=== PATIENT | male | born 1940 | race Caucasian/White ===

== ENCOUNTER 2020-01-11 11:01 | Inpatient (IN) | payer OTHER ==
[~2020-01-11] VITALS: Ht 180.3 cm; Wt 74.1 kg
[2020-01-11] MEDS ORDERED: REMERON15 MG PO (11:08)
[2020-01-11] MEDS ORDERED: FUROSEMIDE40 MG PO (11:08)
[2020-01-11 12:14] LABS: BASOPHILS ABSOLUTE AUTO 0.02 K/mm3 (0.00-0.23); BASOPHILS PERCENT AUTO 0 % (0-2); EOSINOPHILS PERCENT AUTO 0 % (0-6); Hematocrit 43.7 % (37.0-53.0); Hemoglobin 14.5 g/dL (13.5-17.5); IMMATURE GRAN PERCENT AUTO 2 % (0-1); LYMPHOCYTES ABSOLUTE AUTO 1.13 K/mm3 (0.84-5.20); LYMPHOCYTES PERCENT AUTO 9 % (21-46); MONOCYTES ABSOLUTE AUTO 1.12 K/mm3 (0.16-1.47); MONOCYTES PERCENT AUTO 9 % (4-13); Mean Corpuscular HGB 31.3 pg (26.0-34.0); Mean Corpuscular HGB Conc 33.2 g/dL (31.5-36.5); Mean Corpuscular Volume 94 fL (80-100); Mean Platelet Volume 12.2 fL (9.1-12.4); NEUTROPHILS ABSOLUTE AUTO 9.88 K/mm3 (1.96-9.15); NEUTROPHILS PERCENT AUTO 80 % (41-73); Platelet Count 273 K/mm3 (150-400); RDW Coefficient Variation 19.2 % (11.7-14.2); RDW Standard Deviation 60.6 fL (35.1-46.3); Red Blood Cell Count 4.64 M/mm3 (4.30-5.90); White Blood Cell Count 12.35 K/mm3 (4.00-11.30)
[2020-01-11 12:37] LABS: Albumin, Blood 2.2 g/dL (3.4-5.0); Albumin/Globulin Ratio 0.6 (0.8-1.8); Bilirubin, Total 3.6 mg/dL (0.1-1.0); Calcium, Blood 9.1 mg/dL (8.5-10.1); Creatinine, Blood 2.23 mg/dL (0.60-1.20); Globulin, Blood 3.7 g/dL (2.2-4.0); Potassium, Blood 5.9 mmol/L (3.5-5.5); Total Protein, Blood 5.9 g/dL (6.4-8.2)
[2020-01-11 15:18] LABS: International Normalized Ratio 1.92; Prothrombin Time Results 19.8 Sec (9.7-11.5)
[2020-01-11 17:50] LABS: Source, Urine Clean Catch
[2020-01-11 17:55] LABS: Bilirubin, Urine Neg (Neg); Blood, Urine 1+ (Neg); Glucose Qualitative, Urine Neg (Neg); Ketones, Urine Neg (Neg); Leukocyte Esterase, Urine Neg (Neg); Nitrite, Urine Neg (Neg); Protein, Urine 2+ (Neg); Specific Gravity, Urine 1.015 (1.003-1.022); Urobilinogen, Urine 2+ (Normal)
[2020-01-11 18:03] LABS: Appearance, Urine Clear (Clear); Color, Urine Amber (P-Yellow); Hyaline Casts TNTC /lpf (0-2)
[2020-01-11 18:04] LABS: Bacteria Few /hpf; Red Blood Cells, Urine 0-2 /hpf (0-2); Squamous Epithelial Cells Few /hpf (Few); White Blood Cells, Urine Not Seen /hpf (0-5)
[2020-01-11 18:06] LABS: U Amphetamine Screen Not Detected; U Barbituate Screen Not Detected; U Benzodiazapine Screen Not Detected; U Buprenorphine Screen Not Detected; U Cannabinoids Screen Not Detected; U Cocaine Screen Not Detected; U Methadone Screen Not Detected; U Methamphetamine Screen Not Detected; U Opiates Screen Not Detected; U Oxycodone Screen Not Detected; U Phencyclidine Screen Not Detected; U Propoxyphene Screen Not Detected
[2020-01-11 18:12] LABS: Hematocrit 41.2 % (37.0-53.0); Hemoglobin 13.5 g/dL (13.5-17.5)
[2020-01-11 18:37] LABS: Bun/Creatinine Ratio 40.7 (12.0-20.0); Calcium, Blood 8.8 mg/dL (8.5-10.1); Creatinine, Blood 2.46 mg/dL (0.60-1.20); Potassium, Blood 5.4 mmol/L (3.5-5.5)
--- NOTE | 2020-01-11 19:20 | NUR ---
RECEIVED REPORT FROM RASHID DELEON RN IN RD. PT TO ROOM AT AT 1900. PT TRANSFERED TO BED WITH 5 PERSON ASSIST WITH SLIDER SHEET. BEDSIDE REPORT GIVEN TO ONCOMING RN.
[2020-01-12 04:19] LABS: BASOPHILS ABSOLUTE AUTO 0.04 K/mm3 (0.00-0.23); BASOPHILS PERCENT AUTO 0 % (0-2); EOSINOPHILS PERCENT AUTO 0 % (0-6); Hematocrit 41.2 % (37.0-53.0); Hemoglobin 13.5 g/dL (13.5-17.5); IMMATURE GRAN ABSOLUTE AUTO 0.28 K/mm3 (0.00-0.10); IMMATURE GRAN PERCENT AUTO 2 % (0-1); LYMPHOCYTES ABSOLUTE AUTO 1.28 K/mm3 (0.84-5.20); LYMPHOCYTES PERCENT AUTO 10 % (21-46); MONOCYTES ABSOLUTE AUTO 0.98 K/mm3 (0.16-1.47); MONOCYTES PERCENT AUTO 7 % (4-13); Mean Corpuscular HGB 31.3 pg (26.0-34.0); Mean Corpuscular HGB Conc 32.8 g/dL (31.5-36.5); Mean Corpuscular Volume 96 fL (80-100); Mean Platelet Volume 12.5 fL (9.1-12.4); NEUTROPHILS ABSOLUTE AUTO 10.59 K/mm3 (1.96-9.15); NEUTROPHILS PERCENT AUTO 81 % (41-73); NRBC ABSOLUTE 0.04 K/mm3 (0.00-0.02); NRBC Auto 0.3 /100 WBC (0.0-0.2); Platelet Count 268 K/mm3 (150-400); RDW Coefficient Variation 19.8 % (11.7-14.2); RDW Standard Deviation 62.6 fL (35.1-46.3); Red Blood Cell Count 4.31 M/mm3 (4.30-5.90); White Blood Cell Count 13.17 K/mm3 (4.00-11.30)
[2020-01-12 04:43] LABS: Albumin, Blood 2.5 g/dL (3.4-5.0); Albumin/Globulin Ratio 0.7 (0.8-1.8); Bilirubin, Total 5.5 mg/dL (0.1-1.0); Bun/Creatinine Ratio 42.2 (12.0-20.0); Calcium, Blood 8.9 mg/dL (8.5-10.1); Creatinine, Blood 2.7 mg/dL (0.60-1.20); Globulin, Blood 3.6 g/dL (2.2-4.0); Potassium, Blood 5.7 mmol/L (3.5-5.5); Total Protein, Blood 6.1 g/dL (6.4-8.2)
--- NOTE | 2020-01-12 04:55 | NUR ---
SHIFT SUMMARY: PATIENT EXIBITING SOME CONFUSION, FOR EXAMPLE; WHEN PATIENT WAS ASKED IF HIS EPIGASTRIC DISCOMFORT WAS CHRONIC HE STATED YES THAT IT WAS SOMETHING HE HAS FREQUENTLY AT HOME BUT A FEW MINUTES LATER HE STATED NO HE HAD NEVER FELT THIS PAIN BEFORE AND THEN AGAIN CHANGED HIS ANSWER TO YES IT WAS CHRONIC ALL WITHIN A 10 MINUTE PERIOD OF TIME. PATIENT REFUSED THE STOCKINGS STATING HIS FEET WERE TO SWOLLEN AND PAINFUL FOR THEM. PATIENT JAUNDICED AND BURPING CONTINUOUSLY. ALL OTHER VSS, CALL LIGHT WITHIN REACH, BED LOW AND LOCKED WITH EXIT ALARM ON.
[2020-01-12 08:09] LABS: HEP A AB, IGM Negative (Negative); HEP B CORE AB, IGM Negative (Negative); HIV SCREEN 4TH GENERATION WRFX Non Reactive (Non Reactive)
[2020-01-12 09:09] LABS: HBSAG SCREEN Negative (Negative); HEP B CORE AB, TOT Negative (Negative); HEP C VIRUS AB <0.1 (0.0-0.9)
--- NOTE | 2020-01-12 10:35 | NUR ---
PT ASSUMED CARE PT ALERT AND ORIENTED AT BASELINE, HAD WITNESS FALL DURING SHIFT CHANGE, GENERALIZED WEAKNESS, CURRENTLY ON BEDREST. VITALS STABLE AFEBRILE, NS RUNNING AT 100MLS, CURRENTLY ON CLEAR LIQUID DIET, BED ALARM ON ATTEMPTS TO GET OUT OF BED.
--- NOTE | 2020-01-12 10:44 | NUR ---
PT SET OFF BED ALARM; THIS RN TO ROOM; PT SITTING ON SIDE OF BED LEARNING OVER PULLING SIDE TABLE CLOSER. BO BUTLERA TO ROOM, ASSISTED PT TO LAY BACK IN BED, DURING TRANSTION TO LAY BACK PT STARTED BLINKING AND EYE ROLLED BACK, PT RESPONDING WITH MUMMBLES. JAW APPEARS TO BE TWITCHING. AFTER ONLY A FEW SECONDS PT EYES OPENED AND ABLWE TO ANSWER QUESTIONS. VS TAKEN. PRIMARY RN TO ROOM AND NOTIFIED.
--- NOTE | 2020-01-12 11:00 | NUR ---
PT ATTEMPTED TO GET OUT OF BED CAUGHT SITTING ON THE SIDE OF THE BED, PT HAS EPISODE OF ALMOST PASSING OUT, SLOWLY FALLING BACK ON THE BED. PT ALSO C/O STOMACH PAIN THAT WAS NOT RELIEVED BY TRAMADOL, OFFERED HEATING PACK WAS NOT THAT EFFECTIVE WELL DR. BARRY IS AWARE WENT TO SEE THE PATIENT RIGHT AWAY. ORDER RECEIVED TO GIVE PT A BOLUS OF 500CC OF NS, DILAUDID AND ALBUMIN 25%. PT WAS STILL ABLE TO TALK TO THE PROVIDER AGREED TO SWITCH HIS CODE STATUS TO DNR, ALSO CALLED PALLIATIVE CARE NURSE TO FOLLOW-UP. AFTER DR BARRY WAS DONE TALKING TO THE PATIENT, BOLUS OF NS WAS STARTED VIA PUMP. PT WAS RE-CHECKED AFTER 15MINS ASKED HOW IS HE DOING WITH THE PAIN AND SINCE PT HAS NOW ORDER FOR DILAUDID, PT STARTED SLURRING ON HIS SPEECH, LETHARGIC UNABLE TO MAKE EYE CONTACT. VITALS TAKEN SYSTOLIC BP ON THE 80'S PT RR WAS INCREASED TO 30'S-40'S. DR BARRY WAS CALLED AGAIN ABOUT PT'S SUDDEN CHANGE IN CONDITION, PT WAS APPROACHING END OF LIFE. TOLD DR. BARRY THAT PALLIATIVE CARE NURSE WAS CALLED URGENT TO TRANSITION PT TO COMFORT CARE, DR BARRY AGREED. PALLIATIVE CARE NURSE IN THE ROOM AND SPIRITUAL CARE PERSON. IV FLUIDS AND MEDS WAS STOPPED ONLY COMFORT CARE MEDS, 200CC OF BOLUS ADMINISTERED IN TOTAL, DILAUDID 0.5MG WAS GIVEN FOR COMFORT. PT STARTED HAVING MARY-IBANEZ RESPIRATION AND BECAME UNRESPONSIVE, HEART RATE STARTED TO SLOW DOWN ON MONITOR. PT AT 1207, DR BARRY MADE AWARE. COUSIN TEO CALLED TO GET AN UPDATE BEFORE PT TOLD HER THAT PT IS APPROACHING END OF LIFE AND ITS HAPPENING QUICK AND THAT WE NEED TO GET A HOLD OF SON, TOLD THIS RN THAT SON LIVES IN [place] AND SHE WILL TRY TO CONTACT HIM. SON CALLED RIGHT AFTER PT , HE WAS INFORMED THAT HIS DAD PASSED AND THAT HE WILL CALL BACK. DR BARRY MENTIONED THAT HE WILL TALK TO THE SON TOO.
--- NOTE | 2020-01-12 11:50 | NUR ---
Called to bedside pt declining chaplian called son called no answer pt transitioned to comfort. Respirations labored. prn meds give chaplian and staff with patient theraputic touch and comfort.
--- NOTE | 2020-01-12 12:22 | NUR ---
Spiritual care visit conducted. 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 I provide prayer, scripture reading and hold patient's hand until he expires at 1207.
[2020-01-12 13:50] LABS: Stool Occult Blood Guaiac 1 Pos (Neg)
--- NOTE | 2020-01-12 15:12 | NUR ---
spoke with patient terrance trejo and reviewed the events of his fathers passing. Yoly]putic listening and supportive conversation. Advised him chaplian was with him. Offered spirtual care he was accepting. Chapdeo Triplett will follow up with son. Provided funneral planning and support. Charge nurse notified of plan.
--- NOTE | 2020-01-12 15:22 | NUR ---
advised son pt phone and wallet her and contents no cah or debit cared. son states he usually wears ring and watch. no watch and ring present just sweat pants and black tshirt.
--- NOTE | 2020-01-13 09:44 | NUR ---
I called patient's son, Zeeshan, on the phone and discussed the details of his father's dying process. I told Will his father's last concerns, about the love and affection patient was surrounded with ([facility] staff, Rima Leon and this underwriter solicitation director) and about the peace and scientology in the room in the last breaths. I conducted a brief life review, encoureged self-care and provided therapeutic listening, pastoral intake counselor and prayer for Zeeshan. Zeeshan responded well and voiced appreciation for the love and care for his father and himself. I told Will that I would continue to be available if he needs assistance with the tasks he now faces as he arrives in town.
== END 2020-01-12 16:15 | DRG 682 ==
LOC: ER 11:01 → ERHOLD 15:30 → PCU 15:30
PROVIDERS: Emergency Medicine; Nurse Practitioner Acute Care; ADMIT Hospitalist
DX: N17.9 Acute kidney failure, unspecified (principal); K72.00 Acute and subacute hepatic failure without coma; R65.10 Systemic inflammatory response syndrome (SIRS) of non-infectious origin without acute organ dysfunction; C22.0 Liver cell carcinoma; K92.0 Hematemesis; R57.9 Shock, unspecified; E87.5 Hyperkalemia; N40.0 Benign prostatic hyperplasia without lower urinary tract symptoms; W19.XXXA Unspecified fall, initial encounter; Y92.238 Other place in hospital as the place of occurrence of the external cause; S09.90XA Unspecified injury of head, initial encounter; E86.1 Hypovolemia
CPT/HCPCS: 36415; 70450; 76700; 80048; 80053; 81001; 82105; 82140; 82272; 82550; 82947; 83690; 83735; 83880; 84100; 84153; 84443; 85014; 85018; 85025; 85610; 85730; 86317; 86704; 86705; 86708; 86709; 86803; 87340; 87389; 93005; 93010; 96361; 96372-59; 96374; 96375; 99285-25; A9270-GY; C9113; J1170; J1644; J1815; J1940; J2405; J7030